=== PATIENT | female | born 1965 | race Caucasian/White ===

== ENCOUNTER 2017-01-14 12:25 | Emergency (ER) | payer OTHER, MEDICARE ==
[~2017-01-14] VITALS: Ht 162.6 cm; Wt 59.0 kg
[~2017-01-14 12:25] MED LIST: BUSPIRONE HCL15 M1 PO; BUSPIRONE HCL15 MG PO; CYCLOBENZAPRINE10 M1 PO; FLUOXETINE10 MG PO; FOLIC ACID 1 MG PO; LITHIUM CARBON300 M2 PO; MULTIVITAMIN1 TAB PO; NAPROXEN500 MG PO; PRILOSEC 20MG C20 MG PO; TRAZODONE50 MG PO; VICODIN 5-3001 EACH PO; VITAB121000 PO; VITAMIN B1100 MG PO; VITAMIN B11000 MCG/M IM; ZOLPIDEM TARTRAT5 MG PO
[2017-01-14 13:49] LABS: ABSOLUTE BASOPHIL COUNT 0 /CUMM (0.0-0.2); ABSOLUTE EOSINOPHIL COUNT 0.2 /CUMM (0.0-0.7); ABSOLUTE GRANULOCYTE CT 4.1 /CUMM (1.4-6.5); ABSOLUTE LYMPH COUNT 1.5 /CUMM (1.2-3.4); ABSOLUTE MONOCYTE COUNT 0.5 /CUMM (0.10-0.60); BASOPHIL % 0.6 % (0.0-2.0); EOSINOPHIL % 2.4 % (0-5); GRANULOCYTE % 65.6 % (42.2-75.2); HEMATOCRIT 39.5 % (37-47); MEAN CORPUSCULAR HGB 32.6 PG (27.0-31.0); MEAN CORPUSCULAR HGB CONC 33.6 G/DL (33.0-37.0); MEAN CORPUSCULAR VOLUME 97.1 FL (81.0-99.0); MEAN PLATELET VOLUME 9.3 FL (7.4-10.4); PLATELET COUNT 192 /CUMM (130-400); RBC DISTRIBUTION WIDTH 12.6 % (11.5-14.5); RED BLOOD CELL CT 4.07 /CUMM (4.20-5.40); WHITE BLOOD CELL COUNT 6.2 /CUMM (4.8-10.8)
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
[2017-01-14 15:00] VITALS: BP 122/70
[2017-01-14] MEDS ORDERED: IBUPROFEN600 M1 PO (15:10)
== END 2017-01-14 15:20 ==
LOC: ERH 12:25
PROVIDERS: Physician Assistant Medical
DX: N93.9 Abnormal uterine and vaginal bleeding, unspecified (principal)
CPT/HCPCS: 81003; 81025